=== PATIENT | male | born 1995 | race Caucasian/White ===

== ENCOUNTER → 2019-02-26 | Outpatient (CLI) | payer BC ==
--- NOTE | 2019-02-26 17:13 | XR ---
Left forearm HISTORY: Localized swelling, palpable lump 2 views left forearm Bone mineralization, joint spaces and alignment are maintained. No fracture or dislocation. No radiop aque foreign body. IMPRESSION: No significant abnormalities evident.
== END | disposition home or self-care (01) ==
LOC: RADXRYALE 15:49
PROVIDERS: ATTEND Physician Assistant Medical
DX: R22.32 Localized swelling, mass and lump, left upper limb (principal)